=== PATIENT | male | born 1960 | race Caucasian/White ===

== ENCOUNTER → 2017-03-30 | Outpatient (CLI) | payer BC ==
[~2017-03-30] MED LIST: ASPIRIN E.C. 8181 MG PO; COLACE 100100 MG/CAP PO; KLONOPIN WAFER0.5 MG PO; TOPAMAX 25MG25 M1 PO
== END ==
LOC: COL.RAD 08:03
DX: K75.81 Nonalcoholic steatohepatitis (NASH) (principal)

== ENCOUNTER → 2019-05-06 | Outpatient (CLI) | payer BC | LOC: COL.RAD 07:38 | DX: K76.9 Liver disease, unspecified (principal); K75.81 Nonalcoholic steatohepatitis (NASH) | CPT/HCPCS: Q9967 ==

== ENCOUNTER → 2019-06-21 | Outpatient (CLI) | payer BC ==
--- NOTE | 2019-06-17 09:10 | NUR ---
PT STATES HE IS COMING AT 0800. WARNED HIM HE WILL HAVE TO WAIT FOR AN ADDITIONAL HOUR. PT NOT CONCERNED
[~2019-06-21] VITALS: Ht 177.8 cm; Wt 93.8 kg
[2019-06-21] VITALS (8 sets, daily range): BP systolic 117–158; BP diastolic 77–87; PULSE 53–72
[~2019-06-21] MED LIST changes: +ANTIVERT 12.512.5 MG PO; +LIDODERM 5% PATC1 EA TP; +MOTRIN 200200 MG/TAB PO; +SENOKOT8.6 MG PO
[2019-06-21 09:09] LABS: INR 1.1 (0.8-3.0); PROTHROMBIN TIME 12.6 SECONDS (9.7-12.8)
--- NOTE | 2019-06-21 09:55 | NUR ---
Dr Ohara in room, procedure started.
--- NOTE | 2019-06-21 10:08 | NUR ---
liver lesion speciman obtained and put in formulin. pressure held on area as directed and bandaid applied
== END ==
LOC: COL.RAD 08:38
PROVIDERS: Internal Medicine Gastroenterology
DX: R93.2 Abnormal findings on diagnostic imaging of liver and biliary tract (principal)

== ENCOUNTER 2019-06-24 11:02 | Emergency (ER) | payer BC ==
[~2019-06-24] VITALS: Ht 177.8 cm; Wt 94.4 kg
[~2019-06-24 11:02] MED LIST changes: -LIDODERM 5% PATC1 EA TP
[2019-06-24 11:13] VITALS: TEMP 99.1
[2019-06-24] MEDS ORDERED: LIDODERM 5% PATC1 EA TP (13:43)
[2019-06-24 14:04] VITALS: BP 113/67; PULSE 74
== END 2019-06-24 14:07 | disposition home or self-care (01) ==
LOC: COL.ER 11:02
DX: M54.6 Pain in thoracic spine (principal); Z79.82 Long term (current) use of aspirin
CPT/HCPCS: J1885

== ENCOUNTER → 2019-07-24 | Outpatient (CLI) | payer BC ==
[~2019-07-24] MED LIST changes: +LIDODERM 5% PATC1 EA TP
== END ==
LOC: COL.RAD 06:48
DX: C22.0 Liver cell carcinoma (principal); M89.9 Disorder of bone, unspecified
CPT/HCPCS: A9585; Q9967

== ENCOUNTER 2019-12-02 19:06 | Emergency (ER) | payer BC ==
[~2019-12-02] VITALS: Ht 177.8 cm; Wt 85.0 kg
[2019-12-02 19:21] VITALS: BP 155/103; TEMP 98.3
[2019-12-02 19:58] LABS: BASO % 0.1 % (0.0-2.0); GRAN % 84.7 % (42.2-75.2); HEMATOCRIT 40.6 % (42.0-52.0); HEMOGLOBIN 13.3 g/dl (13.5-18.0); LYMPH # 0.5 (1.2-3.4); MEAN CELL VOLUME 94 fl (80.0-100.0); MEAN CORPUSCULAR HEMOGLOBIN 31 pg (27.0-31.0); MEAN CORPUSCULAR HGB CONC 33 g/dl (33.0-37.0); MEAN PLATELET VOLUME 10.5 fl (7.4-10.4); MONO # 1.2 (0.1-0.6); PLATELET COUNT 111 K/mm3 (130-400); RED BLOOD COUNT 4.31 M/mm3 (4.20-5.60); REDCELL DISTRIBUTION WIDTH-CV 16.4 % (11.5-14.5)
[2019-12-02 20:06] LABS: BILIRUBIN,TOTAL 4.7 mg/dL (0.0-1.0); CALCIUM 9.4 mg/dL (8.4-10.2); CREATININE, serum 0.85 (0.66-1.25); POTASSIUM 4.7 mmol/L (3.4-5.0); TOTAL PROTEIN 6.9 gm/dL (6.4-8.2)
[2019-12-02 23:06] LABS: PERITONEAL -POLYMORPHONUCLEAR 21.5 % (0-25); PERITONEAL FLUID RBC 3000 /mm3 (0-0)
[2019-12-02 23:39] LABS: COLLECTION METHOD CLEAN CATCH
[2019-12-03 00:50] LABS: URINE COLOR Amber
[2019-12-03 00:51] LABS: PH 5 (5-8); URINE APPEARANCE Clear; URINE PROTEIN(semi-quant) Negative (NEGATIVE)
[2019-12-03 00:52] LABS: URINE BILIRUBIN Positive (NEGATIVE); URINE GLUCOSE Negative (NEGATIVE); URINE KETONE Negative (NEGATIVE); URINE UROBILINOGEN >=4.0 mg/dL (NEGATIVE)
[2019-12-03 00:53] LABS: SQUAMOUS EPITHELIAL None Seen /hpf; URINE BLOOD Negative (NEGATIVE); URINE LEUKOCYTE ESTERASE Negative (NEGATIVE); URINE NITRATE Negative (NEGATIVE)
[2019-12-03 01:05] VITALS: PULSE 85
== END 2019-12-03 01:05 | disposition home or self-care (01) ==
LOC: COL.ER 19:06
PROVIDERS: Emergency Medicine
DX: K59.00 Constipation, unspecified (principal); R18.8 Other ascites; Z79.1 Long term (current) use of non-steroidal anti-inflammatories (NSAID); Z79.82 Long term (current) use of aspirin; Z85.05 Personal history of malignant neoplasm of liver
CPT/HCPCS: J2270; J2405; J7030; Q9967